=== PATIENT | male | born 2000 | race Caucasian/White ===

== ENCOUNTER 2021-06-28 18:28 | Emergency (ER) | payer MEDICAID ==
[~2021-06-28] VITALS: Ht 172.7 cm; Wt 95.0 kg
[2021-06-28 18:34] VITALS: BP 136/78
[2021-06-28] MEDS ORDERED: MAGNESIUM/ALUMINUM HYDROXIDE/SIMETHICONE 30ML UDC PO STA (18:51)
== END 2021-06-28 22:45 | disposition left against medical advice (07) ==
LOC: ER 18:28
DX: R10.9 Unspecified abdominal pain (principal)
CPT/HCPCS: 93005; 99283